=== PATIENT | female | born 1965 | race Caucasian/White ===

== ENCOUNTER 2024-08-26 14:35 | Outpatient (AMB) | payer MEDICAID, SELFPAY ==
--- NOTE | 2024-08-26 15:09 | ORTHONT_ITS ---
Vital signs 08/26/24 15:10 Height 1.57 m Height Method Stated Weight 80.484 kg Weight Measurement Method Standing Scale BMI 32.4 BP 135/75 H Blood Pressure Source Automatic Cuff Blood Pressure Location Left Upper Arm Position Sitting Respiration 18 Pulse 81 Pulse Source Monitor Temp 98.0 F Temp Source Temporal Artery Scan Pulse Oximetry (%) 98 Oxygen Delivery Method Room Air Med/Allergies Allergies & Medications Allergies NKA* Allergy (Uncoded 08/26/24 15:11) Medication Reconciliation ibuprofen 800 mg tablet 800 mg PO TID PRN pain #30 tabs 11/23/17 [Rx Confirmed 08/26/24] meloxicam 7.5 mg tablet 7.5 mg PO QDAY #45 tabs 08/26/24 [Rx] Exam Exam Patient is in no acute distress and is cooperative with the examination today. Breathing is nonlabored. Patient has a normal mood and affect. Bilateral extremities were evaluated and demonstrates sensation intact to light touch. Palpable pedal pulses are present. No significant edema is present. Bilateral hips were examined. The patient has no pain with log roll of the hips. Internal rotation to 30 degrees and external rotation to 30 degrees is painless. Negative FADIR. Right knee was examined today. The right knee is in reasonable alignment. Range of motion from 0-120 degrees. Knee is stable to varus and valgus as well as AP translation with <5mm. Patient has a negative McMurrays. There is no pain with patellofemoral compression and no crepitus noted. The knee is nontender to palpation. Left knee was examined today. The left knee is in varus alignment. Range of motion from 0-115 degrees. Knee is stable to varus and valgus as well as AP translation with <5mm. Patient has a negative McMurrays. There is no pain with patellofemoral compression and no crepitus noted. The knee is tender to palpation medially. Assessment and Plan Problem List (1) Arthritis of left knee: Status: Acute Plan: Patient is a pleasant 59-year-old female with left knee pain and left knee arthritis. We discussed different treatment options. She would like To try conservative treatment first. We will get authorization for injections at next visit. I would like to see weightbearing x-rays to see the severity of the arthritis. Plan We will see her back after her x-rays are done. 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 (3410-0032) MA Intake Visit Data Collection New Patient or Established: New Patient (never been to [facility]) Reason for Visit:: LEFT KNEE PAIN Seen by Clinical Staff ONLY (RN/MA): No PCP or OBGYN visit in last 3 months: Yes Hx Now: No Do You Feel Safe at Home: Yes Authorities Contacted: N/A Questionairres Past Medical History Past Medical History Have you ever been diagnosed with any of the following: Respiratory Problems Smoking: No Smoking Exposure: No Subjective Visit Visit for: new patient and knee Immunization / Flu Flu Vaccine in the Last 12 Months: No Flu Vaccine Exclusion Criteria: Refused by Patient History of Present Illness Chief complaint: Left knee pain Patient is a pleasant 59-year-old female with a left knee pain and left knee arthritis. She has an MRI that demonstrates arthritis. She saw previous orthopedic surgeon who wants surgery. She has not had any injections or physical therapy. 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
[2024-08-26 15:10] VITALS: BP 135/75; PULSE 81; RESP 18; TEMP 36.7; O2SAT 98; BMI 32.4
--- NOTE | 2024-08-26 15:11 | XR_ITS ---
Examination: Bilateral AP knees standing single view PA and lateral axial left knee 3 views TECHNIQUE: Bilateral AP knee standing single view Flexion standing PA, standing lateral, axial left knee 3 views, 4 views Examination type: August 26, 2024 1540 hours INDICATIONS: Left knee pain beginning one year ago. FINDINGS: Moderate osteopenia Mild to moderate narrowing medial joint space right knee. Moderate narrowing medial joint space left knee Moderate osteoarthritis left patellofemoral joint IMPRESSION: Moderate narrowing medial joint space left knee. Moderate osteoarthritis left patellofemoral joint
== END 2024-08-26 15:21 | disposition home or self-care (01) ==
LOC: HODSRG 14:35
PROVIDERS: PCP Physician Assistant; Referring Provider Physician Assistant; Supervising Provider Orthopaedic Surgery Adult Reconstructive Orthopaedic Surgery; Visit Provider Orthopaedic Surgery Adult Reconstructive Orthopaedic Surgery
DX: M17.12 Unilateral primary osteoarthritis, left knee (principal); M25.562 Pain in left knee
CPT/HCPCS: 73564; 99204; G0463

== ENCOUNTER 2024-09-16 14:43 | Outpatient (AMB) | payer MEDICAID, SELFPAY ==
--- NOTE | 2024-09-16 14:52 | PD.ORTHCLVIS ---
Vital signs 09/16/24 14:53 Height 1.57 m Height Method Stated Weight 79.549 kg Weight Measurement Method Standing Scale BMI 32.3 BP 136/92 H Blood Pressure Source Automatic Cuff Blood Pressure Location Left Upper Arm Position Sitting Respiration 18 Pulse 82 Pulse Source Monitor Temp 98.0 F Temp Source Temporal Artery Scan Pulse Oximetry (%) 98 Oxygen Delivery Method Room Air Med/Allergies Allergies & Medications Allergies NKA* Allergy (Uncoded 09/16/24 14:53) Medication Reconciliation ibuprofen 800 mg tablet 800 mg PO TID PRN pain #30 tabs 11/23/17 [Rx Confirmed 09/16/24] meloxicam 7.5 mg tablet 7.5 mg PO QDAY #45 tabs 08/26/24 [Rx Confirmed 09/16/24] Exam Exam Patient is in no acute distress and is cooperative with the examination today. Breathing is nonlabored. Patient has a normal mood and affect. Bilateral extremities were evaluated and demonstrates sensation intact to light touch. Palpable pedal pulses are present. No significant edema is present. Bilateral hips were examined. The patient has no pain with log roll of the hips. Internal rotation to 30 degrees and external rotation to 30 degrees is painless. Negative FADIR. Right knee was examined today. The right knee is in reasonable alignment. Range of motion from 0-120 degrees. Knee is stable to varus and valgus as well as AP translation with <5mm. Patient has a negative McMurrays. There is no pain with patellofemoral compression and no crepitus noted. The knee is nontender to palpation. Left knee was examined today. The left knee is in varus alignment. Range of motion from 0-115 degrees. Knee is stable to varus and valgus as well as AP translation with <5mm. Patient has a negative McMurrays. There is no pain with patellofemoral compression and no crepitus noted. The knee is tender to palpation medially. Weightbearing x-rays demonstrate mild to moderate arthritis of the left knee Assessment and Plan Problem List (1) Arthritis of left knee: Status: Acute Plan: Patient is a pleasant 59-year-old female with left knee pain and left knee arthritis. We discussed different treatment options. She would like To try conservative treatment first. She would like to try PT at this time Plan We will get her setup with pt and see her in 3 months Office Procedures GNS Level of Care Nursing/Assessment Patient Status: Established Patient Nursing Assessment/Reassesment: Medication Reconciliation, Update PMH in EMR and Vital Signs Coordination of Care: Complex Care and Chronic Disease 1-5, Education Complex Pt/Fam, Consent,records obtained, informed consent, Results/Orders obtained and Staff clarify orders Established Patient Charge Established Patient Point Assignment: 95 Established Patient Point Charge: EP Level 3 (80-115) MA Intake Visit Data Collection New Patient or Established: Established Patient (seen at [facility] within 3 years) Reason for Visit:: XRAY RESULTS/L KNEE PAIN Seen by Clinical Staff ONLY (RN/MA): No PCP or OBGYN visit in last 3 months: Yes Hx Now: No Do You Feel Safe at Home: Yes Authorities Contacted: N/A Questionairres Past Medical History Past Medical History Have you ever been diagnosed with any of the following: Respiratory Problems Smoking: No Smoking Exposure: No Subjective Visit Visit for: follow up visit, knee and x-rays (RESULTS) Immunization / Flu Flu Vaccine in the Last 12 Months: No Flu Vaccine Exclusion Criteria: No Exclusion Criteria History of Present Illness Chief complaint: Left knee pain Patient is a pleasant 59-year-old female with a left knee pain and left knee arthritis. She has an MRI that demonstrates arthritis. She saw previous orthopedic surgeon who wants surgery. She has not had any injections or physical therapy. 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
[2024-09-16 14:53] VITALS: BP 136/92; PULSE 82; RESP 18; TEMP 36.7; O2SAT 98; BMI 32.3
== END 2024-09-16 15:04 | disposition home or self-care (01) ==
LOC: HODSRG 14:43
PROVIDERS: PCP Physician Assistant; Referring Provider Physician Assistant; Supervising Provider Orthopaedic Surgery Adult Reconstructive Orthopaedic Surgery; Visit Provider Orthopaedic Surgery Adult Reconstructive Orthopaedic Surgery
DX: M17.12 Unilateral primary osteoarthritis, left knee (principal); M25.562 Pain in left knee
CPT/HCPCS: 99213; G0463